=== PATIENT | male | born 1985 | race Caucasian/White ===

== ENCOUNTER 2022-04-02 14:18 | Emergency (ER) | payer MEDICAID ==
[~2022-04-02] VITALS: Ht 170.2 cm; Wt 68.2 kg
[2022-04-02 15:11] VITALS: BP 114/86
== END 2022-04-02 16:33 | disposition home or self-care (01) ==
LOC: ER 14:18
DX: F32.A Depression, unspecified (principal); Z88.2 Allergy status to sulfonamides
CPT/HCPCS: 99281